=== PATIENT | female | born 1955 | race Caucasian/White ===

== ENCOUNTER → 2019-06-29 | Outpatient (CLI) | payer BC | LOC: MC.RAD 09:24 | DX: Z12.31 Encounter for screening mammogram for malignant neoplasm of breast (principal) ==

== ENCOUNTER 2021-05-10 18:17 | Emergency (ER) | payer BC ==
[~2021-05-10] VITALS: Ht 170.2 cm; Wt 66.8 kg
[2021-05-10 18:45] VITALS: TEMP 97.6
[2021-05-10 19:44] VITALS: BP 141/80; PULSE 73
== END 2021-05-10 19:44 | disposition home or self-care (01) ==
LOC: COL.ER 18:17
DX: S93.401A Sprain of unspecified ligament of right ankle, initial encounter (principal); X50.1XXA Overexertion from prolonged static or awkward postures, initial encounter; Y93.01 Activity, walking, marching and hiking

== ENCOUNTER → 2021-06-25 | Outpatient (CLI) | payer BC | LOC: MC.RAD 10:31 | DX: Z12.31 Encounter for screening mammogram for malignant neoplasm of breast (principal) ==

== ENCOUNTER → 2024-06-01 | Outpatient (CLI) | payer BC | LOC: MC.RAD 07:35 | DX: Z12.31 Encounter for screening mammogram for malignant neoplasm of breast (principal) ==